=== PATIENT | male | born 1965 | race African-American/Black ===

== ENCOUNTER → 2016-12-06 | Outpatient (CLI) | payer OTHER ==
[~2016-12-06] VITALS: Ht 193 cm; Wt 113.4 kg
[~2016-12-06] MED LIST: CELEXA10 MG PO; FLEXERIL10 MG PO; FLEXERIL5 MG PO; HYDROCODON-ACE1 EAC8 PO; LIDODERM 5% P1 PATCH TD; NAPROSYN500 MG PO; NEXIUM40 MG PO; NORCO 5/3251 TABLET PO; ULTRAM50 MG PO
== END | disposition home or self-care (01) ==
LOC: AMB 09:00
DX: Z12.11 Encounter for screening for malignant neoplasm of colon (principal); K29.80 Duodenitis without bleeding; K57.90 Diverticulosis of intestine, part unspecified, without perforation or abscess without bleeding; F41.8 Other specified anxiety disorders; Z86.73 Personal history of transient ischemic attack (TIA), and cerebral infarction without residual deficits; F10.21 Alcohol dependence, in remission; I25.2 Old myocardial infarction; Z95.5 Presence of coronary angioplasty implant and graft
CPT/HCPCS: 88305; 88342 TC; 93005; J2250; J3010

== ENCOUNTER 2017-02-21 12:59 | Day surgery (SDC) | payer OTHER ==
[~2017-02-21] VITALS: Ht 193 cm; Wt 113.4 kg
== END 2017-02-21 14:35 | disposition home or self-care (01) ==
LOC: PAIN 12:59 → SDC 13:30 → PAIN 14:35
DX: M47.816 Spondylosis without myelopathy or radiculopathy, lumbar region (principal); G89.29 Other chronic pain; M54.5 Low back pain; M51.37 Other intervertebral disc degeneration, lumbosacral region; M19.011 Primary osteoarthritis, right shoulder; I11.9 Hypertensive heart disease without heart failure; Z95.5 Presence of coronary angioplasty implant and graft; Z86.73 Personal history of transient ischemic attack (TIA), and cerebral infarction without residual deficits; F17.200 Nicotine dependence, unspecified, uncomplicated; Z79.891 Long term (current) use of opiate analgesic
CPT/HCPCS: J1030; J2250; J3010; S0020